=== PATIENT | female | born 1945 | race Caucasian/White ===

== ENCOUNTER → 2017-12-31 12:00 | Outpatient (CLI) | payer MEDICARE, SELFPAY ==
[2017-12-31 12:36] LABS: CREATININE FINGERSTICK 0.9 mg/dL (0.55-1.02); EGFR FINGERSTICK > 60.0000 mL/min (>60)
--- NOTE | 2017-12-31 13:00 | MRI_ITS ---
STUDY: MRI BRAIN WITH AND WITHOUT CONTRAST (ATTENTION INTERNAL AUDITORY CANALS - I.A.C.'s) REASON FOR EXAM: Female, 72 years old. Dizziness and unsteady gait for 6 months TECHNIQUE: Standardized multiplanar fat and water weighted pulse sequences were obtained. 5 ml of Gadavist contrast material was administered intravenously for the contrast portion of the examination. COMPARISON: None. FINDINGS: Normal bilateral temporal bones. Normal bilateral internal auditory canals. There is no demonstrated intracanalicular or cisternal vestibular schwannoma (acoustic neuroma). There is no enhancement of the bilateral VIIth or VIIIth cranial nerves. Normal bilateral cochlea, vestibules and semicircular canals. Normal size of the ventricles and extra-axial spaces for the patient's age. Normal white matter tracts of the supratentorial brain. Normal bilateral basal ganglia. Normal thalami. Normal flow voids within the major intracranial circulation suggesting patency by spin echo criteria. Normal venous enhancement. There is no enhancing intra-axial or extra-axial abnormality. There is no extra-axial fluid accumulation. Normal sella turcica, pituitary gland, infundibular stalk, optic chiasm and hypothalamus. Normal tectal plate and pineal gland. Normal midbrain, brandyn and medulla. Normal cerebellum. Normal basal cisterns. No demonstrated orbital abnormality, within the constraints of a routine brain study. There is minor mucosal thickening of the ethmoid air cells. Normal calvarium and skull base. Normal visualized soft tissue structures. Normal visualized upper cervical spine. MRI/Brain W/WO Contrast IMPRESSION: Normal unenhanced and enhanced MRI of the bilateral internal auditory canals (I.A.C's). Mild bilateral ethmoid sinus disease Electronically Signed: Devon Calhoun MD at 16:04 EDT , Service support ,
== END ==
PROVIDERS: Visit Provider Otolaryngology Otolaryngology/Facial Plastic Surgery
DX: R42 Dizziness and giddiness (principal)
CPT/HCPCS: 70553; A9585

== ENCOUNTER 2018-12-17 17:27 | Emergency (ER) | payer MEDICARE, SELFPAY ==
[2018-12-17 17:28] VITALS: BP 136/87; PULSE 81; RESP 18; TEMP 36.5; O2SAT 99; BMI 21.1
--- NOTE | 2018-12-17 17:48 | ED.VISSUMM ---
- ER Visit Summary Date of Service: 12/17/18 Chief Complaint: Fall with left lateral forehead laceration History of Present Illness: The patient is a 73 F no seen past medical or surgical history. Was walking through an area store when she tripped over a storage basket and fell to the floor. Breaking her glasses and cutting her left lateral forehead above her left eyebrow. No LOC. She is reportedly on no blood thinners. Denies any neck back, chest or abdominal pain. Physical Examination: Well-appearing older female. No acute distress. Vital signs are stable afebrile. HEENT exam. She has a similar laceration above her left lateral eyebrow. There is dried blood around the area. No skin hematoma. Pupils round reactive light motions are intact. C-spine nontender. Lungs clear to auscultation bilaterally. Heart regular rhythm no murmur. Chest nontender. Abdomen soft nontender. Gargle intact. Patient moving all 4 extremities. Neurovascular intact. There are nontender. No deformity. She said she thinks she hit her left elbow but really denies any pain. She has normal range of motion arm to both shoulders, both elbows and both wrists. Normal health information technician strength. There is no swelling or deformity. She was offered but deferred a left elbow x-ray. Lower extremities are unremarkable. There is no shortening or rotation. Back is nontender spine nontender. Neurologically she is awake alert with no focal motor deficits. Test Results: None Emergency Department Course and Treatment: Tetanus will be updated. Left forehead laceration repair of 2.5 cm. Locally anesthetized with plain lidocaine. Cleaned with iodine washed with saline explored and closed using three 6-0 Ethilon sutures. Proper hemostasis wound closure obtained. Patient tolerated procedure well. Treatment Plan: Head injury instructions. Wound care. Suture removal out in 5 to 7 days. Disposition: Discharge Impression: Tripped and fell in a store Left forehead laceration 2.5 cm ER repair Closed head injury This note was generated with Glide[employer] dictation software. It may contain incorrect words, spelling, and punctuation that were not noted in review of the chart prior to signing ED Disposition - Plan for ED Patient: Disposition: Home or Assisted Living Instructions: ED Head Injury Closed, ED Laceration Facial Sutr Tape Referrals: Marsha Rojas DO [Primary Care Provider] - 5 Days for suture removal Additional Instructions: Keep the wound clean and dry. Suture removal in 5 to 7 days. Return if severe headache, vomiting or not acting herself. Ice to the left elbow and Tylenol for pain. If the elbow pain is not improving or gets worse she will need an x-ray.
--- NOTE | 2018-12-17 17:53 | ED.DCSUM_ITS ---
- ER Visit Summary Date of Service: 12/17/18 Chief Complaint: Fall with left lateral forehead laceration History of Present Illness: The patient is a 73 F no seen past medical or surgical history. Was walking through an area store when she tripped over a storage basket and fell to the floor. Breaking her glasses and cutting her left lateral forehead above her left eyebrow. No LOC. She is reportedly on no blood thinners. Denies any neck back, chest or abdominal pain. Physical Examination: Well-appearing older female. No acute distress. Vital signs are stable afebrile. HEENT exam. She has a similar laceration above her left lateral eyebrow. There is dried blood around the area. No skin hematoma. Pupils round reactive light motions are intact. C-spine nontender. Lungs clear to auscultation bilaterally. Heart regular rhythm no murmur. Chest nontender. Abdomen soft nontender. Gargle intact. Patient moving all 4 extremities. Neurovascular intact. There are nontender. No deformity. She said she thinks she hit her left elbow but really denies any pain. She has normal range of motion arm to both shoulders, both elbows and both wrists. Normal frozen meat cutter strength. There is no swelling or deformity. She was offered but deferred a left elbow x-ray. Lower extremities are unremarkable. There is no shortening or rotation. Back is nontender spine nontender. Neurologically she is awake alert with no focal motor deficits. Test Results: None Emergency Department Course and Treatment: Tetanus will be updated. Left forehead laceration repair of 2.5 cm. Locally anesthetized with plain lidocaine. Cleaned with iodine washed with saline explored and closed using three 6-0 Ethilon sutures. Proper hemostasis wound closure obtained. Patient tolerated procedure well. Treatment Plan: Head injury instructions. Wound care. Suture removal out in 5 to 7 days. Disposition: Discharge Impression: Tripped and fell in a store Left forehead laceration 2.5 cm ER repair Closed head injury This note was generated with [employer] dictation software. It may contain incorrect words, spelling, and punctuation that were not noted in review of the chart prior to signing ED Disposition - Plan for ED Patient: Disposition: Home or Assisted Living Instructions: ED Head Injury Closed, ED Laceration Facial Sutr Tape Referrals: Marsha Rojas DO [Primary Care Provider] - 5 Days for suture removal Additional Instructions: Keep the wound clean and dry. Suture removal in 5 to 7 days. Return if severe headache, vomiting or not acting herself. Ice to the left elbow and Tylenol for pain. If the elbow pain is not improving or gets worse she will need an x-ray.
[2018-12-17] MEDS: Diphth,Pertuss(Acell),Tet Vac 0.5 ML Vial IM (17:54)
[2018-12-17 18:39] VITALS: BP 132/85; PULSE 72; RESP 15; O2SAT 99
== END 2018-12-17 18:40 | disposition home or self-care (01) ==
PROVIDERS: Emergency Provider Emergency Medicine
DX: S01.81XA Laceration without foreign body of other part of head, initial encounter (principal); W18.09XA Striking against other object with subsequent fall, initial encounter; Y93.01 Activity, walking, marching and hiking; Y92.512 Supermarket, store or market as the place of occurrence of the external cause; M81.0 Age-related osteoporosis without current pathological fracture
CPT/HCPCS: 12011; 90471; 90715; 99283

== ENCOUNTER → 2019-07-12 11:20 | Outpatient (CLI) | payer MEDICARE, SELFPAY ==
[2019-07-12 12:01] LABS: Erythrocyte Sedimentation Rate 7 mm/hr (0-30)
[2019-07-12 12:15] LABS: Hemoglobin A1c 5.2 % (4.2-6.3)
[2019-07-12 13:33] LABS: Hepatitis C Antibody Non-Reactive (Nonreactive); Vitamin B12 408 pg/mL (211-911)
[2019-07-12 13:39] LABS: Rheumatoid Factor < 10.0 IU/mL (<15); Thyroid Stim Hormone (TSH) 1.42 uIU/mL (0.358-3.74)
[2019-07-13 14:08] LABS: RNP Ab <0.2 AI (0.0-0.9); Smith Ab <0.2 AI (0.0-0.9)
[2019-07-13 15:48] LABS: ANTINUCLEAR ANTIBODIES DIRECT Negative (Negative)
[2019-07-13 16:07] LABS: Immunoglobulin A 200 mg/dL (64-422); Immunoglobulin G 1094 mg/dL (700-1600); PROEL- A/G Ratio 1.1 (0.7-1.7); PROEL- Albumin 3.7 g/dL (2.9-4.4); PROEL- Alpha-1 Globulin 0.3 g/dL (0.0-0.4); PROEL- Alpha-2 Globulin 0.8 g/dL (0.4-1.0); PROEL- Beta Globulin 1.2 g/dL (0.7-1.3); PROEL- Gamma Globulin 1.1 g/dL (0.4-1.8); PROEL- Globulin, Total 3.3 g/dL (2.2-3.9)
[2019-07-13 17:59] LABS: Immunoglobulin M 128 mg/dL (26-217)
== END ==
PROVIDERS: Referring Provider Psychiatry & Neurology Neurology; Visit Provider Psychiatry & Neurology Neurology
DX: G62.9 Polyneuropathy, unspecified (principal); R53.83 Other fatigue; R73.9 Hyperglycemia, unspecified
CPT/HCPCS: 36415; 82607; 82746; 82784; 83036; 84165; 84443; 85652; 86038; 86235; 86334; 86431; 86803

== ENCOUNTER 2019-09-28 11:30 | Outpatient (RCR) | payer MEDICARE, SELFPAY ==
--- NOTE | 2019-09-01 09:06 | HP.PTEVAL_ITS ---
Patient's Visit Information DAVID JAEGER is a 74 year old F referred to Physical Therapy by Rolando Ruiz MD with a diagnosis of gait instability. Date of Evaluation: 09/01/19 Physical Therapist: Pepe Andrew, PT, ATC - Visit Plan Frequency: 1x/Week Duration: 2 Weeks Plan: Attempt to get a balance performance order from Dr. Ruiz - Subjective Findings: Pt reports she has been unsteady with her gait for a long time. Pt reports she has a Hx of stumbling and falling. Pt reports she has no feeling in her R foot and she is seeing a neurologist in an attempt to figure out why she has no sensation. Pt reports approximately 8 mos ago, she had no difficulty with gait. Pt reports she has difficulty with stair negotiation secondary to her balance concerns. Pt tends to fall on average once per week. Pt reports she mostly falls when she is reaching out for something. Pt is not in pain at this time. Only the R foot is numb per patient. - Objective Neuro: B LE sensation is WNL this date. MMT: B LE's 5/5 throughout this date. FGA: - Balance Scores Functional Gait Assessment Score: 15 % Disability: 50.0000 - Goals Goal 1:: Perform balance performance assessment successfully Goal Time Frame: 1 Week - Rehabilitation Potential Physical Therapy Diagnosis: Pt has a Hx of mechanical falls secondary to gait instability Rehabilitation Potential: Good - Anticipated Interventions Patient/Client Instruction: Educate patient on: Condition, Plan of Care For the Purpose of:: To improve self management Thank you for the opportunity to evaluate your patient. For Medicare and Medicare HMO plans, please review the plan of care and approve it. It will need to be FAXED BACK to us at [phone] for Medicare purposes. For Medicare only, by signing this I certify the plan of care. Please let me know if there are questions or concerns regarding this plan of care. Physician Signature: Date:
--- NOTE | 2019-09-14 11:26 | HP.PTREVAL ---
Rolando Ruiz MD, It has been my pleasure to treat DAVID JAEGER over the last 2 visits for gait instability. Please see the progress note below for an update on the physical therapy plan of care! Subjective: Had balance therapy at [facility] previously. Objective/Function: SOT: vestibular deficits. MCT:latency backwards translations. LOS:FW excursion and control deficits. COPY OF RESULTS MAILED TO DOCTOR, NEW GOAL AND POC SET WITH FAIR PROGNOSIS.(Pt has kika through balance ex before adn wanted minimal visits to do work at home. Plan Plan: 2 visits to teach HEP of. 1. FW weight shifts and functional fw weight shifts. 2. foam and/OR ec exercises. BOTH WITH PICS AND PROGRESSIONS SAFETY ALLOWS. PT MAY F/U IN A MONTH FOR RETESTING BASED ON PATIENTS DESIRE. Goals Goal 1:: Perform balance performance assessment successfully Goal Time Frame: 1 Week Goal 2:: i APPROP hep TO MINIMIZE FUTURE PROBLEMS Goal Time Frame: 4-6 Weeks Goal Progress: NEW GOAL Anticipated Interventions Patient/Client Instruction: Educate patient on: Condition, Plan of Care For the Purpose of:: To improve self management Please do not hesitate to contact me at [phone] by phone or if you have questions or concerns regarding this new plan of care! Sincerely, Russel Brewer, FABYT, OCS, CSCS
--- NOTE | 2019-11-23 18:48 | HP.PT.NRP ---
DAVID JAEGER was seen in my office for initial evaluation on 09/01/19. The following Plan of Care was established for this patient: Initial Frequency: 1x/Week Initial Duration: 2 Weeks Patient/Client Instruction: Educate patient on: Condition, Plan of Care For the Purpose of:: To improve self management This patient was last seen in our office . Pertinent comments regarding their Physical therapy will appear below: Pt has had 4 PT visits for her R gait instability through the date of 09/28/2019. Pt has not returned through todays date and is therefore discontinued at this time. At this point I will be discontinuing this patient from physical therapy. I would be happy to see this patient again in the future if found appropriate by the physician. Thank you! Pepe Andrew, PT, ATC
== END 2019-09-28 19:00 | disposition home or self-care (01) ==
LOC: PT 11:30
PROVIDERS: Referring Provider Psychiatry & Neurology Neurology; Visit Provider Psychiatry & Neurology Neurology
DX: R26.81 Unsteadiness on feet (principal)
CPT/HCPCS: 97110; 97161; 97750

== ENCOUNTER → 2020-04-09 14:08 | Outpatient (CLI) | payer MEDICARE, SELFPAY ==
[2020-04-09 14:04] VITALS: BMI 21.1
--- NOTE | 2020-04-09 14:09 | RAD_ITS ---
STUDY: X-RAY - RIGHT SHOULDER REASON FOR EXAM: Female, 74 years old. FELL AND LANDED ON BACK/SHOULDER TECHNIQUE: 4 view(s) of the shoulder. COMPARISON: None. FINDINGS: Normal glenohumeral articulation. There is degenerative arthrosis of the acromioclavicular joint without inferior osseous spur formation. Normal acromion. Normal humeral head and visualized proximal humerus. The soft tissue structures are unremarkable. Normal visualized pulmonary apex. RAD/Shoulder min 2 Views IMPRESSION: There is degenerative arthrosis of the acromioclavicular joint . Electronically Signed: Carmen Villavicencio, at 14:33 EDT Tel , Service support ,
== END ==
PROVIDERS: Referring Provider Physician Assistant Surgical; Visit Provider Physician Assistant Surgical
DX: S40.011A Contusion of right shoulder, initial encounter (principal)
CPT/HCPCS: 73030

== ENCOUNTER → 2021-06-27 09:54 | Outpatient (CLI) | payer MEDICARE, SELFPAY ==
[2021-06-27 11:28] LABS: Vitamin D,25 Hydroxy 36.4 ng/mL
[2021-06-27 11:39] LABS: ALB/GLOB Ratio 0.9 RATIO (0.9-2.4); AST(SGOT) 17 U/L (15-37); Alanine Aminotransfer ALT/SGPT 21 U/L (13-56); Albumin, Serum 3.3 g/dL (3.2-5.0); Alkaline Phosphatase 66 U/L (45-117); Anion Gap 4 (5-15); BUN 20 mg/dL (7-18); BUN/Creat Ratio 20.8 RATIO (10-20); Calcium,Total 8.9 mg/dL (8.5-10.1); Chloride 107 mmol/L (98-107); Creatinine, Serum 0.96 mg/dL (0.55-1.02); EST Glomerular Filtration Rate 60 mL/min (>60); Est Glom Filt Rate - Afr Amer 73 mL/min (>60); Globulin 3.8 g/dL (2.2-4.2); Glucose 127 mg/dL (74-106); Potassium 4.3 mmol/L (3.5-5.1); Protein, Total 7.1 g/dL (6.4-8.2); Sodium Level 141 mmol/L (136-145)
== END ==
DX: M81.0 Age-related osteoporosis without current pathological fracture (principal)
CPT/HCPCS: 36415; 80053; 82306

== ENCOUNTER → 2022-01-02 | Outpatient (CLI) | payer MEDICARE, SELFPAY ==
[2022-01-02 11:22] LABS: Hematocrit 44.1 % (37-47); Hemoglobin 14.8 g/dL (12.0-15.0); Mean Corp Hgb Conc 33.6 g/dL (32-36); Mean Corpuscular Volume 89.5 fL (81-99); Mean Platelet Vol. 9.7 fl (6.2-12.0); Platelet Count 277 K/mm3 (150-450); RBC Distribution Width CV 13.5 % (11.6-14.6); RBC Distribution Width SD 44.2 fl (35.1-43.9); Red Blood Count 4.93 M/mm3 (4.2-5.4); White Blood Count 6.8 K/mm3 (4.4-11.0)
[2022-01-02 11:40] LABS: Vitamin D,25 Hydroxy 41.1 ng/mL
[2022-01-02 11:49] LABS: ALB/GLOB Ratio 0.9 RATIO (0.9-2.4); AST(SGOT) 22 U/L (15-37); Alanine Aminotransfer ALT/SGPT 25 U/L (13-56); Albumin, Serum 3.6 g/dL (3.2-5.0); Alkaline Phosphatase 66 U/L (45-117); Anion Gap 6 (5-15); BUN 16 mg/dL (7-18); BUN/Creat Ratio 18.1 RATIO (10-20); Calcium,Total 9.1 mg/dL (8.5-10.1); Chloride 104 mmol/L (98-107); Creatinine, Serum 0.88 mg/dL (0.55-1.02); EST Glomerular Filtration Rate 66 mL/min (>60); Est Glom Filt Rate - Afr Amer 80 mL/min (>60); Globulin 3.8 g/dL (2.2-4.2); Glucose 116 mg/dL (74-106); Protein, Total 7.4 g/dL (6.4-8.2); Sodium Level 135 mmol/L (136-145)
== END | disposition home or self-care (01) ==
LOC: LAB 10:15
DX: M81.0 Age-related osteoporosis without current pathological fracture (principal); R59.1 Generalized enlarged lymph nodes; R53.83 Other fatigue
CPT/HCPCS: 36415; 80053; 82306; 84443; 85027

== ENCOUNTER → 2022-01-23 | Outpatient (CLI) | payer MEDICARE, SELFPAY ==
[2022-01-23 14:06] LABS: Vitamin B12 434 pg/mL (211-911)
[2022-01-23 14:08] LABS: AST(SGOT) 21 U/L (15-37); Alanine Aminotransfer ALT/SGPT 14 U/L (13-56); Albumin, Serum 3.5 g/dL (3.2-5.0); Alkaline Phosphatase 63 U/L (45-117); Anion Gap 5 (5-15); BUN 16 mg/dL (7-18); BUN/Creat Ratio 19.7 RATIO (10-20); Calcium,Total 9.3 mg/dL (8.5-10.1); Chloride 110 mmol/L (98-107); Creatinine, Serum 0.81 mg/dL (0.55-1.02); EST Glomerular Filtration Rate 73 mL/min (>60); Est Glom Filt Rate - Afr Amer 88 mL/min (>60); Globulin 3.5 g/dL (2.2-4.2); Glucose 87 mg/dL (74-106); Potassium 3.9 mmol/L (3.5-5.1); Sodium Level 140 mmol/L (136-145)
[2022-01-23 14:19] LABS: Erythrocyte Sedimentation Rate 15 mm/hr (0-30)
[2022-01-28 20:58] LABS: Arsenic 7245 < 1 ug/L (0-9); Lead, Blood 1 ug/dL (0-4); Mercury, Blood 85324 < 1.0 ug/L (0.0-14.9)
== END | disposition home or self-care (01) ==
PROVIDERS: Referring Provider Psychiatry & Neurology Neurology; Visit Provider Psychiatry & Neurology Neurology
DX: G93.40 Encephalopathy, unspecified (principal)
CPT/HCPCS: 36415; 80053; 82175; 82607; 83655; 83825; 85652

== ENCOUNTER 2022-08-05 11:00 | Outpatient (RCR) | payer MEDICARE, SELFPAY ==
--- NOTE | 2022-06-15 10:58 | HP.PTEVAL_ITS ---
Patient's Visit Information DAVID JAEGER is a 76 year old F referred to Physical Therapy by Dr. Eduin Bucio MD with a diagnosis of PD, Ataxia, encephalopathy. Date of Evaluation: 06/15/22 Physical Therapist: BALWINDER Fleming - Visit Plan Frequency: 2x /Week Duration: 2 Months Plan: 2X/ week for 8 weeks for horizontal head turns started in seated and progress to standing and walking if able without dizziness. Work on static to dynamic balance with foam and without foam and EO/EC. Work on heel to toe gait pattern. Work on walking with her walker with horisontla head turns, curb steps, sit to stand transfers, turning 180 degrees with HEP and other functional activities. HEP: Seated horizontal head turns with supervision - Subjective Pt fell yesterday on her R shoulder and her shoulder hurts to do anything today. Her son reports that her balance is really bad and she fall quite a bit. She was not using her walker yesterday and took the dogs out and fell. 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 She did not have her life alert on she did not have her cell phone or her walker. They just Dx her PD this year but the neurologist said DX in December but has had it long before that. She has deteriorated worse. Her balance is off and she veers with walking and drags her feet per her son. She used to walk all the time and now its progressivley worse. They are trying her on different meds. She can not get in and out of the shower due to balance. Getting in and out of bed she can do it but it takes her awhile. Sit to stand: - Pain R shoulder Pain Intensity (Out of 10): 0 Pain Intensity Range: 8 Comment: with movement - Objective Sit to stand: uses arms to get out of a chair and slow movement to stand up. Fearful of standing up without UE support but did better once explained that she would be ok and safe and she would not fall. Pt very fearful of standing with feet together with EC. Gait: walks with shuffled gait and trying to hold onto the wall with CGA. Looks straight ahead with gait. Pt did not shredder picker her feet. She was unable to turn her head and continue to walk. She was standing still and attempted to turn her head and got dizzy to the R. When pt goes to turn around at 180 degrees she has both hands on the wall as she turns. Pt is struggling with sitting back on the chair and scooting back onto the mat due to her R arm soremess. CATSIB 66. FGA 3. Seated with horizontal head turns X 30 seconds (increase neck tightness and increase dizziness). LE MMT: R hip flex 11.4# and L 11.3#. R knee ext 21.1# and L knee ext 18.5#. R knee flex 12.5 and L 10.4#. Pt is able to 1/2 normal ROM heel and toe raises/ - Balance/Special Test Scores Functional Gait Assessment Score: 3 % Disability: 90.0000 CATSIB Score (Max score 120 seconds): 66 Lower Extremity Functional Score: 10 - Goals Goal 1:: I HEP Goal Time Frame: 6-8 Weeks Goal 2:: Be able walk with heel to toe gait pattern with SBA back to the treatment area Goal Time Frame: 6-8 Weeks Goal 3:: Be able to turn 180 degrees without using the garcia or AD Goal Time Frame: 6-8 Weeks Goal 4:: Work on curb steps with CGA X 5 in a row Goal Time Frame: 6-8 Weeks Goal 5:: Be able to walk slowly with occ horizontal head turns without LOB and feeling dizzy Goal Time Frame: 6-8 Weeks - Rehabilitation Potential Rehabilitation Potential: Good - Anticipated Interventions Patient/Client Instruction: Educate patient on: Condition, Plan of Care For the Purpose of:: To decrease pain, To improve nutrient delivery to tissue, To improve muscle performance and motor function, To improve ability to perform ADL's, To increase tolerance to activity/condition/position, To improve performance and independence with ADL's, To improve ability of physical actions for home/community/work/leisure, To improve gait and locomotor functions, To improve health of tissue, To improve endurance, To improve balance, To improve safety with gait Therapeutic Exercise to Include: Strength training, Endurance training, Balance training, Body mechanics, Postural training, Gait and locomotor training, Neuromotor development For the Purpose of:: To improve ability to perform ADL's, To increase tolerance to activity/condition/position, To improve performance and independence with ADL's, To decrease level of supervision to perform tasks, To improve ability of physical actions for home/community/work/leisure, To improve gait and locomotor functions, To improve health of tissue, To improve endurance, To improve balance, To improve safety with gait Functional Training to Include: Gait training For the Purpose of:: To improve gait and locomotor functions, To improve safety with gait Thank you for the opportunity to evaluate your patient. For Medicare and Medicare HMO plans, please review the plan of care and approve it. It will need to be FAXED BACK to us at [phone] for Medicare purposes. For Medicare only, by signing this I certify the plan of care. Please let me know if there are questions or concerns regarding this plan of care. Physician Signature: Date:
--- NOTE | 2022-08-05 13:23 | HP.PTDCSUM ---
It has been my pleasure to treat DAVID JAEGER referred by Dr. Eduin Bucio MD, with the diagnosis of PD, Ataxia, encephalopathy for a total of 10 visit(s). Discharge Date: 08/05/22 Please see the following information for a summary of their discharge status. Subjective: Son thinks that she has made improvements but she forgets and needs constant reminder to take bigger steps and not shuffle her feet. She told her son that she feels that she is having changes and can not do anything about it. Son has seen a big decrease in the last few months. She is leaving to go out to her sisters for the Holidays. Pt feels that therapy has made her walk better and that can move her eyes better. R shoulder Pain Intensity (Out of 10): 5 % Improvement: 40 Objective/Function: Turning 180 degrees: pt gets very dizzy with turning 180 degrees and has to stop for awhile. Horizontal saccades...moves much better and longer. Vertical saccades...still struggles to moves eye up but better tracking. Gait: needed verbal cues to walk inside the walker and look up.... she does not look to see where she is going and does not see objects in front of her. If she goes to look up she moves her head and eyes will slowly follow Goal 1:: I HEP Goal Progress: Progressing Goal 2:: Be able walk with heel to toe gait pattern with SBA back to the treatment area Goal Progress: Progressing Goal 3:: Be able to turn 180 degrees without using the garcia or AD or feeling dizzy Goal 4:: Work on curb steps with CGA X 5 in a row Goal 5:: Be able to walk slowly with occ horizontal head turns without LOB and feeling dizzy Goal 6:: Be able to stand and turn head X 10 times horizontal in each direction without dizziness Plan: DC PT. HEP: Seated horizontal head turns with supervision, horizontal and vertical sacaddes and turning 180 degrees with supervision only. Discharge Comments: DC PT to HEP until after the Holidays If there are questions or concerns regarding this patient's physical therapy, please feel free to call me at [phone]. Thank you for the referral of this patient. Sincerely, Jodi Azevedo, MPT Balance/Gait/Functional tests - Balance/Special Test Scores Functional Gait Assessment Score: 3 % Disability: 90.0000 CATSIB Score (Max score 120 seconds): 66 Lower Extremity Functional Score: 16
== END 2022-08-05 19:00 | disposition home or self-care (01) ==
LOC: PT 11:00
PROVIDERS: Referring Provider Psychiatry & Neurology Neurology; Visit Provider Psychiatry & Neurology Neurology
DX: G93.40 Encephalopathy, unspecified (principal); R27.0 Ataxia, unspecified
CPT/HCPCS: 97110; 97161

== ENCOUNTER 2022-10-02 07:35 | Emergency (ER) | payer MEDICARE, SELFPAY ==
[2022-10-02 07:35] VITALS: BP 131/78; PULSE 80; RESP 18; TEMP 36.4; O2SAT 98; BMI 21.6
--- NOTE | 2022-10-02 07:47 | EDS_ITS ---
HPI HPI - Fall History of Present Illness Chief Complaint: Fall Detail of Chief Complaint: Mechanical fall Informant: patient and family Occured/Mechanism Occurred: Yesterday (Fell backwards striking the right side of her lower back) and Days (Mechanical fall striking the right side of her back) Mechanism/Context: Yes same level fall and Yes trip Narrative: Patient states she tripped fell backwards landing on a fire truck and close basket. Usually ambulates: Without assistance Pain/Injury Location: Home Pain Location: back Quality of Pain: Dull and Aching Current Severity: Mild Maximum Severity: Moderate Worsened by: Movement Relieved by: Nothing Associated Symptoms Associated Symptoms: Negative for Parasthesias, Weakness, Loss of function, Inability to ambulate, Loss of consciousness or Amnesia Narrative Narrative: Patient is a 77-year-old woman with history of osteoporosis and degenerative joint disease of the A/C joint right shoulder. She was seen yesterday by orthopedic surgeon who injected her shoulder. She had a fall several days ago and yesterday falling on her back. She has history of Parkinson's disease. Patient is not on an antiplatelet or anticoagulant. Patient denies head trauma. Denies loss of conscious. She denies headache. She denies visual, ocular auditory symptoms. Denies ringing or ears. She denies neck pain. She denies paresthesia, anesthesia or motor aches. She denies shortness of breath. She states it does hurt to take a deep breath on the right side. She has not noted change in the color of her urine. Tetanus Immunization: Unknown Prior similar symptoms: Yes Recent Illness/Hospitalization: No PFSH PFSH Medical History (Updated 10/02/22 @ 08:[address] Benito Smith MD) Shoulder pain Home Medications alendronate 10 mg tablet 10 mg PO DAILY@0700 06/18/17 [History Last Taken Unknown] hydrocodone-acetaminophen 5-325mg 5mg-325mg 1 tab PO Q6H PRN PRN Pain 7 days #28 TABLETS 10/02/22 [Rx Last Taken Unknown] Allergy/AdvReac Type Severity Reaction Status Date / Time No Known Allergies Allergy Verified 10/02/22 07:38 Family History (Updated 04/09/20 @ 14:26 by Parag Johansen) Other Cancer Surgical History History of total hysterectomy Social History (Updated 10/02/22 @ 07:[address] Benito Smith MD) Smoking Status: Never smoker alcohol intake: never substance use type: does not use ROS ROS ED Constitutional Constitutional ED: Denies chills, fever(s), subjective or sweats Eyes Eyes: Denies blurry vision, change in vision or diplopia ENT ENT ED: Reports other Details: She denies neck pain. ; Denies ear pain or sore throat Cardiovascular Cardiovascular: Denies chest pain or palpitations Respiratory/Chest Respiratory/Chest: Denies cough, dyspnea or dyspnea on exertion Gastrointestinal Gastrointestinal: Denies abdominal pain, nausea or vomiting Genitourinary Genitourinary ED: Denies dysuria or hematuria Musculoskeletal Musculoskeletal: Reports back pain; Denies arthralgias, myalgias or neck pain Integumentary Denies Abrasions or rash Neurologic Neurologic: Denies headache(s) or paresthesias EXAM Physical Exam Const Vital Signs: 10/02/22 07:35 10/02/22 07:53 Temperature 97.5 F L Temperature Source Temporal Pulse Rate 80 Respiratory Rate 18 Respiratory Effort Normal Non-Labored Respiratory Depth Shallow Respiratory Pattern Normal Blood Pressure 131/78 H Blood Pressure Mean 95 Pulse Ox 98 Oxygen Delivery Method Room Air Positive well developed; Negative for contractures or unkempt Constitutional Narrative: Patient appears uncomfortable. She does have shuffled gait. General Appearance ED: well developed; Negative for unkempt or contractures HEENT Reports normocephalic HEENT Narrative: Years old. Nares patent. No septal deviation or hematoma. No evidence of dental trauma. atraumatic Eyes PERRL and EOMs intact bilaterally Eyes Narrative: There is no subconjunctival hemorrhage noted. General Eye ED: Negative for pale conjunctiva or scleral icterus Neck full ROM, no lymphadenopathy and supple Chest Wall inspection of chest normal and palpation of chest normal Resp normal respiratory effort, no retractions and clear to auscultation bilaterally Cardio regular rate, regular rhythm, S1 normal heart sound, S2 normal heart sound and no murmurs GI non-tender, non-distended and no masses Back/Spine no CVA tenderness Back/Spine Narrative: There is ecchymosis noted lateral lower right flank area. There is tenderness over the right 11th and 12th rib. There is no crepitus or subcutaneous air appreciated. Cervical Spine: Negative for cervical spine tenderness Lumbar Spine / Lower Back: Negative for lumbar spinal tenderness Neuro oriented x3, CN's II-XII intact bilaterally and moves all extremities Neuro Narrative: Shuffled gait. Psych Appearance: Negative for unkempt Mood & Affect: depressed Skin Skin Narrative: Bruising as previously described Lesions: no lesions Rashes: no rashes MDM MDM MDM Narrative Medical decision making narrative: Review of outside records reveals patient has osteoporosis and degenerative joint disease of the right AC/shoulder joint. With history of osteoporosis bruising tenderness over rib Will obtain x-ray to evaluate for fracture as well as pneumothorax and hemothorax. Patient was medicated with oral meds for pain. Since there is no evidence of head trauma and she denies head trauma per the [place] CT head rules imaging is not required or indicated. Since there is no C-spine tenderness and she has full active range of motion per [employer] study imaging of the neck is not required. Family member approached me regarding home health. Consult was placed to case management to discuss home health options since son works third shift and sleeps during the day in light of patient's frequent falls. Since patient has fractured ribs she was discharged with incentive spirometer and prescription for open analgesic. Radiography Diagnostic Testin views of the chest/ribs were obtained. Patient has minimally displaced eighth and ninth right rib fracture. There is no evidence of pneumothorax or hemothorax. Cardiac silhouette and size unremarkable. Mediastinum is unremarkable. Discharge Plan Triage Chief Complaint: Fall ED Provider: Benito Smith Dx/Rx/DC Orders Clinical Impression: Multiple fractures of ribs of right side, History of osteoporosis, Injury due to fall Instructions: ED Rib Fracture Prescriptions: New hydrocodone-acetaminophen [hydrocodone-acetaminophen] 5-325 mg tablet 1 tab PO Q6H PRN PRN (Reason: Pain) 7 Days Qty: 28 0RF No Action alendronate 10 MG tablet 10 mg PO DAILY@0700 Primary Care Provider: Marsha Rojas Referrals: Marsha Rojas DO [Primary Care Provider] - 3-5 Days Activity Restrictions/Additional Instructions: Use incentive spirometer every hour while awake. Disposition Disposition: Home, Self Care
[2022-10-02] MEDS: HYDROcodone Bitartrate/Apap 5/325 Tablet PO (07:49)
--- NOTE | 2022-10-02 08:00 | RAD_ITS ---
STUDY: X-RAY - UNILATERAL RIBS ( RIGHT ) WITH CHEST REASON FOR EXAM: Female, 77 years old. Blunt trauma, bruising and pain over 11th and 12th TECHNIQUE - RIBS: 4 view(s) of the ribs. TECHNIQUE - CHEST: Single PA view of the chest. COMPARISON: Comparison is made with prior chest radiograph dated 06/18/2017. FINDINGS - RIBS: Nondisplaced fractures of the anterolateral aspect of the right eighth and ninth ribs. FINDINGS - CHEST: Hyperinflation. There is no demonstrated pleural abnormality. Normal size heart. Normal mediastinum and mely. Normal visualized pulmonary arteries. Normal visualized aortic arch and descending thoracic aorta. Normal visualized thoracic spine. Nondisplaced right eighth and ninth ribs along the anterolateral aspect of the ribs. Small amount of subcutaneous emphysema overlying the rib fractures. There is no demonstrated abnormality of the visualized soft tissue structures of the upper abdomen. RAD/Ribs Uni Min 3V w/PA Chest IMPRESSION: RIBS: Nondisplaced fractures of the right eighth and ninth ribs anterolaterally. CHEST: Normal x-ray examination of the chest. No evidence of pneumothorax. Electronically Signed: Padilla Markham MD at 8:24 EST ,
--- NOTE | 2022-10-02 10:59 | CM.ED ---
RYLIE called patient's son, Valentin Goss, and left voice message to call this internal communications writer. [place] W[facility]
--- NOTE | 2022-10-02 17:49 | CM.ED ---
Addendum entered by [place] [facility] 10/02/22 21:05: Patient declined list of Home Health agency and choose [facility]. RYLIE sent patient [facility] information via mail. [place] DECKERLISWS Original Note: RYLIE called patient's son, Valentin Goss. Valentin said that his daughter, patient's granddaughter is at the home most nights with patient. Per Valentin patient has a fall button. Beth said that between his daughter and the neighbors they make sure that patient gets a shower. Valentin said that patient will be good for awhile but had just come home from [place] and being at her daughters house and she fell alot in [place]. Patient has Parkinson disease. Patient is homebound. Valentin said that at time patient leans out to far and falls. Valentin works the facility service associate leaving at 8-9pm and then gets home between 6-8 in the morning. RYLIE asked Valentin what services he is interested in. Valentin said that he is not sure but maybe someone to assist with taking patient to the appointments as I am the one going and I am getting 1-2 hours of sleep . RYLIE discussed services through [facility] ([facility] RYLIE discussed [facility] information and Valentin was open to receiving information about [facility] services. RYLIE discussed PT/OT evaluation, RN services and SW assistance through home health. Valentin said that patient has had outpatient PT in the past. Per Valentin patient is homebound. RYLIE discussed options regarding home health and Valentin voiced no preference and since [facility] provides service to the area and has a sr. social media & mobile manager RYLIE made referral to [facility] Home Health. SW could be helpful with reviewing services through [facility] and resources. RYLIE spoke to [facility] at Home [facility]. RYLIE made referral. Diamond will follow up on Wednesday. Patient's son, Valentin, said that he gets home from work at 8-9am and tries to go to bed by 10 in the morning. Beth said that he generally tries to sleep till 3pm but sometimes he is up by 1:00pm. RYLIE sent email to Diamond updating her regarding services for patient. Plan: [facility] Home Health [place] W[facility]
== END 2022-10-02 08:52 | disposition home or self-care (01) ==
PROVIDERS: Emergency Provider Emergency Medicine; Visit Provider Emergency Medicine
DX: S22.41XA Multiple fractures of ribs, right side, initial encounter for closed fracture (principal); W18.30XA Fall on same level, unspecified, initial encounter
CPT/HCPCS: 71101; 99283

== ENCOUNTER 2023-03-18 09:34 | Emergency (ER) | payer MEDICARE, SELFPAY ==
[2023-03-18 09:36] VITALS: BP 131/73; PULSE 83; RESP 18; TEMP 36.2; O2SAT 98
--- NOTE | 2023-03-18 10:04 | CT_ITS ---
STUDY: CT CERVICAL SPINE WITHOUT CONTRAST REASON FOR EXAM: Female, 77 years old. NecK trauma RADIATION DOSAGE (If Supplied By Facility): CTDIvol = ( 11.91 ) mGy, DLP = ( 244.67 ) mGycm TECHNIQUE: High resolution transaxial imaging was performed without contrast material. Sagittal and coronal images were reconstructed. Individualized dose optimization techniques were used for this CT. COMPARISON: None FINDINGS: Normal craniovertebral junction. Normal anterior atlantoaxial articulation. Normal odontoid process. There is straightening of the normal cervical lordosis. Multilevel spondylosis. C2-3: Facet joint osteoarthritis and hypertrophy worse on the left side. Minimal anterior listhesis of C2 on C3 most likely secondary to the facet joint osteoarthritis. C3-4: Marked degree of the space narrowing and spondylosis. Central canal stenosis due to the posterior spondylosis. Minimal retrolisthesis of C3 on C4. Facet joint osteophytes and hypertrophy. Bilateral neural foraminal stenosis. C4-5: Marked degree of disc space narrowing. Spondylosis. Uncovertebral arthrosis. Facet joint osteoarthritis. Bilateral neural foraminal stenosis. C5-6: Marked degree of vertebral disc space narrowing and spondylosis. Central canal stenosis due to posterior spondylosis. Bilateral neural foraminal stenosis worse on the left side. C6-7: Marked degree of disc space narrowing. Spondylosis. Uncovertebral arthrosis. Central canal stenosis as well as bilateral neural foraminal stenosis. C7-T1: Normal endplates. Normal disc height and morphology. Normal central canal and intervertebral neuroforamina. Normal visualized soft tissue structures. CT/Spine Cervical without Contras IMPRESSION: Multilevel degenerative changes, as described above. Electronically Signed: Padilla Markham MD at 10:38 EDT ,
--- NOTE | 2023-03-18 10:04 | CT_ITS ---
STUDY: CT BRAIN WITHOUT CONTRAST REASON FOR EXAM: Female, 77 years old. Head injury. RADIATION DOSAGE (If Supplied By Facility): CTDIvol = ( 44.99 ) mGy, DLP = ( 779.24 ) mGycm TECHNIQUE: Transaxial CT imaging of the brain was performed without administration of intravenous contrast material. Individualized dose optimization techniques were used for this CT. COMPARISON: No relevant priors. FINDINGS: Normal soft tissue structures. Normal calvarium. There is mild cerebral atrophy with widening of the extra-axial spaces and ventricular dilatation. Normal white matter tracts of the cerebral hemispheres. Normal basal ganglia and thalami. Normal brainstem. There is mild cerebellar atrophy. There is no intracranial hemorrhage. There are no findings of an acute ischemic infarction. Atherosclerotic calcification of the cavernous portions of the internal carotid arteries bilaterally. Normal visualized paranasal sinuses. CT/Brain/Head without Contrast IMPRESSION: Chronic involutional changes of the brain. Electronically Signed: Padilla Markham MD at 10:39 EDT ,
--- NOTE | 2023-03-18 10:09 | ED.VIS.FALL ---
HPI HPI - Fall History of Present Illness Chief Complaint: Fall Informant: patient and family Narrative Narrative: Patient is a 77-year-old female with history of Parkinson's disease and multiple falls presenting after a fall. Patient states she had a mechanical fall this morning's. She states she just fell because of her Parkinson's. She hit the right side of her head on her end table. I had a lot of bleeding from the wound behind her ear. No loss of conscious reported. Is not any blood thinners. Patient had another fall yesterday where she scraped her bottom lip and another fall earlier in the week where she hit the front of her head. Son does state that she is on a new medicine to help with her nerves. He states she will have good weeks and bad weeks. She does follow with neurology. Patient has no other complaints or concerns at this time. Is denying any significant pain. Tetanus Immunization: <5 years [facility] Medical History Shoulder pain Home Medications alendronate 10 mg tablet 10 mg PO DAILY@0700 06/18/17 [History Last Taken Unknown] hydrocodone-acetaminophen 5-325mg 5mg-325mg 1 tab PO Q6H PRN PRN Pain 7 days #28 TABLETS 10/02/22 [Rx Last Taken Unknown] Allergy/AdvReac Type Severity Reaction Status Date / Time No Known Allergies Allergy Verified 10/02/22 07:38 Family History Other Cancer Surgical History History of total hysterectomy Social History Smoking Status: Never smoker alcohol intake: never substance use type: does not use ROS ROS ED Constitutional Constitutional ED: Denies chills or fever(s) Eyes Eyes: Denies change in vision Respiratory/Chest Respiratory/Chest: Denies cough Gastrointestinal Gastrointestinal: Denies nausea or vomiting Integumentary Reports Abrasions; Denies rash Neurologic Neurologic: Reports other Details: Frequent falls secondary to Parkinson's disease ; Denies headache(s), paresthesias or weakness Hematologic/Lymphatic Hematologic/Lymphatic: Denies easy bleeding or easy bruising EXAM Physical Exam Const Vital Signs: 03/18/23 09:36 Temperature 97.1 F L Temperature Source Temporal Pulse Rate 83 Respiratory Rate 18 Blood Pressure 131/73 H Blood Pressure Mean 92 Pulse Ox 98 Oxygen Delivery Method Room Air Positive well nourished and well developed General Appearance ED: well developed and NAD HEENT Reports normocephalic and TM's normal bilaterally HEENT Narrative: No cephalhematoma appreciated. No epistaxis or rhinorrhea present. Patient does have a 2.5 cm crescent shaped full-thickness scalp laceration along the right parietal scalp with no active bleeding. No palpable skull fracture need appreciated. There is a small abrasion at the bottom left lip that is healing and there is also an area of ecchymosis over the front upper forehead that appears to be healing an older Eyes PERRL and EOMs intact bilaterally Neck full ROM General: Negative for tenderness Chest Wall inspection of chest normal and palpation of chest normal Resp normal respiratory effort and clear to auscultation bilaterally Cardio regular rate, regular rhythm and no murmurs GI non-tender and non-distended Neuro oriented x3, moves all extremities, no focal motor deficits and no sensory deficits noted Neuro Narrative: No significant tremor at this time Motor Exam: Negative for general weakness Psych mental status grossly normal and thought process normal Skin Skin Narrative: 2.5 cm full-thickness crescent shaped laceration of the right parietal scalp MDM MDM MDM Narrative Medical decision making narrative: Patient evaluated for closed head injury with associated scalp laceration. Scalp laceration is amenable to Dermabond repair. See procedure note below. Patient has no focal neurologic deficits. Is at her baseline. Has no other complaints or signs of infection including fever, recent cough or urinary changes. I do not think metabolic work-up is indicated as her falls likely associated with her lung standing Parkinson disease. CT of the brain as well as C-spine obtained to rule out anterior cranial process, skull fracture as well as associated C-spine fracture given mechanism of injury and recent falls. These are negative for acute process. Patient will be discharged home with outpatient follow-up with neurology and PCP. Counseled on return precautions. Patient feels comfortable and safe going home. Patient and son agreeable with this plan of care. Procedure note Area cleansed with sterile saline. Skin edges approximated using hair apposition technique and Dermabond used to close the wound. Patient tolerated procedure well with no immediate complications. Radiography Diagnostic Testing: Clinical Impression(s) from Imaging Studies Brain CT 03/18/23 10:04 IMPRESSION: Chronic involutional changes of the brain. Electronically Signed: Padilla Markham MD at 10:39 EDT , Cervical Spine CT 03/18/23 10:04 IMPRESSION: Multilevel degenerative changes, as described above. Electronically Signed: Padilla Markham MD at 10:38 EDT , Discharge Plan Triage Chief Complaint: Fall Other Complaint: Laceration ED Provider: Kelle Garvin Dx/Rx/DC Orders Clinical Impression: Closed head injury, Falls frequently, Laceration of scalp Instructions: ED Laceration, Face: Skin Glue, ED Fall Prevention Prescriptions: No Action alendronate 10 MG tablet 10 mg PO DAILY@0700 hydrocodone-acetaminophen [hydrocodone-acetaminophen] 5-325 mg tablet 1 tab PO Q6H PRN PRN (Reason: Pain) 7 Days Qty: 28 0RF Primary Care Provider: Marsha Rojas Referrals: Marsha Rojas, [Primary Care Provider] - Disposition Disposition: Home, Self Care Discharge Date/Time: 03/18/23 11:36
--- NOTE | 2023-03-18 11:21 | CM.ED ---
Social Work SW met with patient and patient's son and introduced herself and role as [facility] SW. Patient agreeable to talk with her son present. SW inquired if patient has completed HCPOA or LW documents. Patient unable to recall, patient's son states he is patient's POA and the patient also have LW complete. SW educated patient and patient's son on HCPOA documents and reviewed options to have assistance with completing the documents. Patient and patient's son were receptive, no other needs voiced. Cyndi Huffman MSW, BETHANY
[2023-03-18 11:29] VITALS: BMI 20.9
== END 2023-03-18 11:36 | disposition home or self-care (01) ==
PROVIDERS: Emergency Provider Emergency Medicine; Visit Provider Emergency Medicine
DX: S09.90XA Unspecified injury of head, initial encounter (principal); G20 Parkinson's disease; S01.01XA Laceration without foreign body of scalp, initial encounter; W19.XXXA Unspecified fall, initial encounter
CPT/HCPCS: 12001; 70450; 72125; 99283

== ENCOUNTER 2023-07-26 07:19 | Emergency (ER) | payer MEDICARE, SELFPAY ==
[2023-07-26 07:19] VITALS: BP 120/72; PULSE 77; RESP 18; TEMP 36.3; O2SAT 98; BMI 19.8
--- NOTE | 2023-07-26 07:33 | EDS_ITS ---
HPI HPI - Fall History of Present Illness Chief Complaint: Fall Informant: patient Occured/Mechanism Occurred: Today Mechanism/Context: Yes same level fall Narrative: Patient had a syncopal episode while on the toilet this morning. Pain/Injury Location: Left forehead Pain Location: head Quality of Pain: Throbbing Worsened by: Nothing Relieved by: Nothing Associated Symptoms Associated Symptoms: Positive for Weakness, Loss of consciousness and Amnesia (Patient does not remember falling but remembers getting up and going to the bathroom this morning); Negative for Parasthesias Length of loss of consciousness: Few seconds Narrative Narrative: Patient presents after a fall that occurred today. Patient had a syncopal e pisode this morning while on the toilet going to the bathroom. Patient was only out for a few seconds. Family heard the patient fall and found the patient on the floor. Family states patient was coherent and awake when they arrived in the bathroom. Patient hit her head on the counter. Patient denies any other injuries. Patient denies any neck or back pain. Patient denies any paresthesias. Patient has a history of Parkinson's disease and has some generalized weakness because of that. [facility] Medical History Parkinson disease, symptomatic Shoulder pain Home Medications alendronate 10 mg tablet 10 mg PO DAILY@0700 06/18/17 [History Last Taken Unknown] hydrocodone-acetaminophen 5-325mg 5mg-325mg 1 tab PO Q6H PRN PRN Pain 7 days #28 TABLETS 10/02/22 [Rx Last Taken Unknown] Allergy/AdvReac Type Severity Reaction Status Date / Time No Known Allergies Allergy Verified 07/26/23 07:24 Family History Other Cancer Surgical History History of total hysterectomy Social History Smoking Status: Never smoker alcohol intake: never substance use type: does not use ROS ROS ED Constitutional Constitutional ED: Denies chills or fever(s) Eyes Eyes: Denies blurry vision or change in vision ENT ENT ED: Denies rhinorrhea or sore throat Cardiovascular Cardiovascular: Denies chest pain or palpitations Respiratory/Chest Respiratory/Chest: Denies cough or dyspnea Gastrointestinal Gastrointestinal: Denies nausea or vomiting Genitourinary Genitourinary ED: Denies dysuria or hematuria Musculoskeletal Musculoskeletal: Denies back pain or neck pain Integumentary Denies abscess or rash Neurologic Neurologic: Reports headache(s) and weakness Allergic/Immunologic Allergic/Immunologic ED: Denies mouth swelling or urticaria EXAM Physical Exam Const Vital Signs: 07/26/23 07:19 07/26/23 07:33 07/26/23 11:39 Temperature 97.4 F L Temperature Source Temporal Pulse Rate 77 77 Respiratory Rate 18 16 Respiratory Effort Normal Respiratory Depth Normal Respiratory Pattern Normal Blood Pressure 120/72 119/71 Blood Pressure Mean 88 87 Pulse Ox 98 97 Oxygen Delivery Method Room Air Room Air Room Air Positive well nourished and well developed General Appearance ED: well developed and NAD HEENT HEENT Narrative: There is a hematoma over the left frontal area. There is no bony crepitance or step-off. There is tenderness to palpation over this area. hematoma Eyes PERRL Eyes Narrative: Extraocular muscles are grossly intact. Patient is unable to look up with either eye. Family states that this is from her Parkinson's and she is undergoing therapy for this. Neck supple Resp normal respiratory effort and clear to auscultation bilaterally Cardio regular rate and regular rhythm GI non-tender and non-distended Palpation: soft Neuro oriented x3 Toshia Coma Scale: document GCS findings Spontaneous Obeys Commands Oriented 15 Sensorium / Orientation: alert Motor Exam: general weakness Psych mental status grossly normal MDM MDM MDM Narrative Medical decision making narrative: Differential diagnosis includes intracranial bleeding, stroke, exacerbation of Parkinson's disease, syncope, cardiac dysrhythmia, cardiac ischemia, electrolyte abnormality, and anemia. CT scan of the brain will be obtained to assess for intracranial bleeding and stroke. EKG will be obtained to assess for cardiac dysrhythmia and cardiac ischemia. CBC will be obtained to assess for leukocytosis and anemia. Basic metabolic profile will be obtained to assess for electrolyte abnormality and renal function. High-sensitivity troponin will be obtained to assess for cardiac ischemia. Lab Data Attestation: I reviewed the patient's lab results. Lab results narrative: CBC was reviewed and was within normal limits. Basic metabolic profile was reviewed and was within normal limits. High-sensitivity troponin was reviewed and was normal at 5. 2-hour repeat high-sensitivity troponin was reviewed and was 7. Labs: Laboratory Results - last 24 hr 07/26/23 07/26/23 07:50 10:35 WBC 8.3 RBC 4.31 Hgb 12.9 Hct 39.8 MCV 92.3 MCH 29.9 MCHC 32.4 RDW Std Deviation 47.3 H RDW Coeff of [place] 13.9 Plt Count 293 MPV 9.3 Immature Gran % (Auto) 0.200 Neut % (Auto) 71.1 H Lymph % (Auto) 18.9 L Teller % (Auto) 6.9 Eos % (Auto) 2.4 Baso % (Auto) 0.5 Absolute Neuts (auto) 5.9 Absolute Lymphs (auto) 1.57 Nucleated RBC % 0 Sodium 143 Potassium 4.1 Chloride 110 H Carbon Dioxide 31.0 Anion Gap 2 L BUN 16 Creatinine 0.91 Estim Creat Clear Calc 43.59 Est GFR (MDRD) Af Amer 77 Est GFR (MDRD) Non-Af 64 BUN/Creatinine Ratio 17.6 Glucose 96 Calcium 8.6 Troponin I High Sens 5 7 Radiography Diagnostic Testing: Clinical Impression(s) from Imaging Studies Brain CT 07/26/23 07:41 IMPRESSION: Chronic involutional changes of the brain. No acute hemorrhage Left frontal/temporal scalp hematoma without skull fracture Electronically Signed: Dawson Myers MD at 8:17 EST , CT scan of the brain was obtained. There is no acute intracranial abnormality. There are chronic changes noted. There is a left frontal scalp hematoma. This was interpreted by the radiologist and was also independently reviewed by myself. EKG Initial EKG: Attestation: I personally reviewed and interpreted this EKG as follows: Interpretation: Sinus Rhythm (72) and No Acute Injury Pattern Comments: EKG was obtained. On my independent interpretation, it showed a normal sinus rhythm with a rate of 72. HI interval, QRS interval, and QTc intervals were all normal. [place] was normal. There are no acute ST or T wave changes. Prior EKG tracings: available for review Prior: Unchanged (06/18/2017) Treatment and Re-Evaluation Narrative: Patient and family were advised of findings. Patient was instructed to use ice to her forehead. Patient was instructed to take Tylenol or ibuprofen as needed for pain. Patient was instructed to follow-up with her primary care physician in 5 to 7 days. Patient and family understand and are agreeable with the plan. All questions were answered. Discharge Plan Triage Chief Complaint: Fall ED Provider: Russel De Leon Dx/Rx/DC Orders Clinical Impression: Closed head injury, Syncope and collapse Instructions: ED Head Injury (Adult), ED Fainting, Uncertain Cause Prescriptions: No Action alendronate 10 MG tablet 10 mg PO DAILY@0700 hydrocodone-acetaminophen [hydrocodone-acetaminophen] 5-325 mg tablet 1 tab PO Q6H PRN PRN (Reason: Pain) 7 Days Qty: 28 0RF Stand Alone Forms: ED Work / School Excuse Primary Care Provider: Marsha Rojas Referrals: Marsha Rojas, [Primary Care Provider] - 5-7 Days Disposition Disposition: Home, Self Care
--- NOTE | 2023-07-26 07:41 | CT_ITS ---
STUDY: CT BRAIN WITHOUT CONTRAST REASON FOR EXAM: Female, 77 years old. Head injury RADIATION DOSAGE (If Supplied By Facility): CTDIvol = ( 44.99 ) mGy, DLP = ( 779.24 ) mGycm TECHNIQUE: Transaxial CT imaging of the brain was performed without administration of intravenous contrast material. Individualized dose optimization techniques were used for this CT. COMPARISON: 03/18/2023 FINDINGS: Left frontal/temporal scalp hematoma without skull fracture There is mild cerebral atrophy with widening of the extra-axial spaces and ventricular dilatation. There are areas of decreased attenuation within the white matter tracts of the supratentorial brain, consistent with microvascular disease changes. Normal basal ganglia and thalami. Normal brainstem. There is mild cerebellar atrophy. There is no intracranial hemorrhage. There are no findings of an acute ischemic infarction. Normal visualized paranasal sinuses. CT/Brain/Head without Contrast IMPRESSION: Chronic involutional changes of the brain. No acute hemorrhage Left frontal/temporal scalp hematoma without skull fracture Electronically Signed: Dawson Myers MD at 8:17 EST ,
[2023-07-26 08:07] LABS: Absolute Lymphocyte Count 1.57 X10^3/uL (0.83-4.51); Absolute Neutrophil Count 5.9 X10^3/uL (2.0-7.7); Basophil# 0.04 X10^3/uL; Basophil% 0.5 % (0-1); Eosinophils% 2.4 % (0-5); Hematocrit 39.8 % (37-47); Hemoglobin 12.9 g/dL (12.0-15.0); Lymphocyte # 1.57 X10^3/ul (0.83-4.51); Lymphocyte % 18.9 % (19-41); Mean Corp Hgb Conc 32.4 g/dL (32-36); Mean Corpuscular Hgb 29.9 pg (27.0-32.0); Mean Corpuscular Volume 92.3 fL (81-99); Mean Platelet Vol. 9.3 fl (6.2-12.0); Monocyte# 0.57 X10^3/uL; Monocyte% 6.9 % (0-10); NRBC Flagged by Analyzer 0 % (0-5); Neutrophil # 5.89 X10^3/uL (2.7-7.7); Neutrophil % 71.1 % (47-70); Platelet Count 293 K/mm3 (150-450); RBC Distribution Width CV 13.9 % (11.6-14.6); RBC Distribution Width SD 47.3 fl (35.1-43.9); Red Blood Count 4.31 M/mm3 (4.2-5.4); White Blood Count 8.3 K/mm3 (4.4-11.0)
[2023-07-26 08:27] LABS: Anion Gap 2 (5-15); BUN 16 mg/dL (7-18); BUN/Creat Ratio 17.6 RATIO (10-20); Calcium,Total 8.6 mg/dL (8.5-10.1); Chloride 110 mmol/L (98-107); Creatinine, Serum 0.91 mg/dL (0.55-1.02); EST Glomerular Filtration Rate 64 mL/min (>60); Est Glom Filt Rate - Afr Amer 77 mL/min (>60); Estimated Creatinine Clearance 43.59 ml/min; Glucose 96 mg/dL (74-106); Potassium 4.1 mmol/L (3.5-5.1); Sodium Level 143 mmol/L (136-145); Troponin-I HS (w/2H Reflex) 5 pg/mL (3.0-54.0)
[2023-07-26 10:01] LABS: Reflex Troponin-HS? (from REC) Y
[2023-07-26 11:08] LABS: Troponin-I HS 7 pg/mL (3.0-54.0)
[2023-07-26 11:39] VITALS: BP 119/71; PULSE 77; RESP 16; O2SAT 97
== END 2023-07-26 15:46 | disposition home or self-care (01) ==
PROVIDERS: Emergency Provider Emergency Medicine; Visit Provider Emergency Medicine
DX: S09.90XA Unspecified injury of head, initial encounter (principal); R55 Syncope and collapse; W18.30XA Fall on same level, unspecified, initial encounter
CPT/HCPCS: 70450; 80048; 84484; 85025; 93005; 99285; A4216